=== PATIENT | female | born 1960 | race Caucasian/White ===

== ENCOUNTER 2017-10-22 05:56 | Day surgery (SDC) | payer OTHER ==
[2017-10-22] MEDS ORDERED: Propofol 10 mg/ml Inj (20 ML) ONE (07:45)
[2017-10-22] MEDS ORDERED: Midazolam 2 MG/2 ML VIAL ONE (07:46)
[2017-10-22] MEDS ORDERED: Lactated Ringer's 1,000 ML IV SCH (08:45)
--- NOTE | 2017-10-22 08:50 | PCM.SURG1 ---
Surgeon's Initial Post Op Note - Surgeon's Notes Surgeon: dr veliz Wellfield Technician: none Type of Anesthesia: General LMA Anesthesia Administered By: dr major Pre-Operative Diagnosis: 57 yr with post menapusl bleeding/end thickening Operative Findings: see the op reort Post-Operative Diagnosis: same Operation Performed: myasure/d&c, hysterscopy Specimen/Specimens Removed: ecc. emc. polyp Estimated Blood Loss: EBL {In ML}: 20 Blood Products Given: N/A Drains Used: No Drains Post-Op Condition: Good Date of Surgery/Procedure: 10/22/17 Time of Surgery/Procedure: 09:00
[2017-10-22] MEDS ORDERED: Lactated Ringer's 500 ML IV ONE (10:10)
[2017-10-22] MEDS ORDERED: Lactated Ringer's 1,000 ML IV ONE (10:17)
[2017-10-22 10:50] VITALS: RESP 18
[2017-10-22 11:08] VITALS: BP 124/69; PULSE 88; TEMP 98; O2SAT 96
--- NOTE | 2017-10-23 07:09 | OP ---
PROCEDURE DATE: 10/22/2017 PREOPERATIVE DIAGNOSIS: Endometrial polyposis. POSTOPERATIVE DIAGNOSIS: Endometrial polyposis. SURGEON: Fernando Hardy MD HIGHWAY PAINTER: None. TYPE OF ANESTHESIA: Spinal. ANESTHESIA ADMINISTERED BY: COMPLICATIONS: None. PROCEDURE PERFORMED: MyoSure, dilatation and curettage, and hysteroscopy. DESCRIPTION OF PROCEDURE: After informed consent was obtained, the patient was brought to the operating room. General anesthesia was given. Once the anesthesia was given, the patient was prepped and draped in normal sterile fashion. Examination of the uterus revealed it to be 7 weeks size. No pelvic or adnexal masses. Anterior lip of the cervix was grasped with a tenaculum. Gentle dilatation of the cervix was done with a dilator. Hysteroscope was introduced and found a polyp on the posterior wall of the uterus. Picture was taken . MyoSure was used to remove the polyp. It was removed. The hysteroscope was introduced, and there was found to be no polyp. After that, sharp curettage of all the garza of the uterus was done, and it was sent to pathology. Then the tenaculum was taken out. The patient tolerated the procedure well. Lap, sponge, and instrument counts were correct x2. Deficit was 20 mL. Fernando Hardy MD
== END 2017-10-22 11:08 | disposition home or self-care (01) ==
LOC: C.SDS 05:56
PROVIDERS: ATTEND Obstetrics & Gynecology
DX: N93.9 Abnormal uterine and vaginal bleeding, unspecified (principal); N84.0 Polyp of corpus uteri; N95.0 Postmenopausal bleeding
CPT/HCPCS: 58558; 82948; 88305; J1100; J1885; J2001; J2250; J2405; J2704; J3010; J7120

== ENCOUNTER 2018-07-20 06:49 | Day surgery (SDC) | payer OTHER ==
[2018-07-14 11:26] VITALS: BMI 33.6
[2018-07-20] MEDS ORDERED: Propofol 10 mg/ml Inj (20 ML) ONE (08:48)
[2018-07-20] MEDS ORDERED: Midazolam 2 MG/2 ML VIAL ONE (08:50)
[2018-07-20] MEDS ORDERED: Lidocaine/Epinephrine 1% 1:100000 10 ML IJ ONE (10:14)
[2018-07-20] MEDS ORDERED: Sodium Chloride 0.9% 40 ML IV ONE (10:14)
[2018-07-20] MEDS ORDERED: Bupivacaine 0.25% 20 ML INJ IJ ONE (10:14)
[2018-07-20] MEDS ORDERED: ceFAZolin 1 gm in NS 2 GM/200 ML BAG IVPB ONE (10:14)
[2018-07-20] MEDS ORDERED: Bupivacaine Liposomal Inj 20 ml INFIL ONE (10:14)
[2018-07-20] MEDS ORDERED: HYDROmorphone 0.5 mg/0.5 ml ISec IVP PRN ×2 (10:20→13:13)
[2018-07-20] MEDS ORDERED: Neostigmine 1:1000 (1 mg/ml) Inj ONE (11:54)
[2018-07-20] MEDS ORDERED: Succinylcholine Chloride 20 mg/ml Syr (5 ml) IV ONE (11:54)
[2018-07-20] MEDS ORDERED: Lactated Ringer's 1,000 ML IV ONE (13:05)
--- NOTE | 2018-07-20 13:08 | PCM.SURG1 ---
Surgeon's Initial Post Op Note - Surgeon's Notes Surgeon: Dr. Mcgovern [employer] Consultant: Halle Ingram Type of Anesthesia: General Endo, Block Regional, Local Pre-Operative Diagnosis: incisional hernia Operative Findings: agustina-umbilical incisional hernia w/ diastasis recti and reducible omental hernia contents Post-Operative Diagnosis: incisional agustina-umbilical hernia with diastasis recti Operation Performed: robotic assisted laparoscopic incisional hernia repair with mesh, plication of diastasis recti and TAP Block Specimen/Specimens Removed: omental hernia contents Estimated Blood Loss: EBL {In ML}: 10 Blood Products Given: N/A Drains Used: No Drains Post-Op Condition: Good Date of Surgery/Procedure: 07/20/18 Time of Surgery/Procedure: 13:08
[2018-07-20] MEDS ORDERED: Oxycodone/Acetaminophen 5/325 mg Tab PO PRN (13:11)
[2018-07-20 15:44] VITALS: RESP 18; O2SAT 98
[2018-07-20 16:01] VITALS: PULSE 78
[2018-07-20 17:06] VITALS: BP 124/71; TEMP 97.7
--- NOTE | 2018-07-21 04:26 | OP ---
PROCEDURE DATE: 07/20/2018 PREOPERATIVE DIAGNOSES: 1. Incisional hernia. 2. Morbid obesity. 3. Diastasis of rectus muscles. POSTOPERATIVE DIAGNOSES: 1. Incarcerated incisional hernia. 2. Diastasis of rectus muscles, 8 x 4 cm size. 3. Morbid obesity. PROCEDURES DONE: 1. Robotic incarcerated incisional hernia repair with a mesh. 2. Robotic diastasis of rectus muscles with a mesh. 3. Laparoscopic bilateral transverse abdominis plane block placement. SURGEON: Ildefonso Mcgovern MD [employer] MA[employer]: HUMBERTO Richard, PGY-4, resident ANESTHESIA: General endotracheal tube anesthesia. ESTIMATED BLOOD LOSS: Around 10 mL. DRAINS: None. PATHOLOGY: Hernial sac and content were sent to the Pathology. COMPLICATIONS: None. INTRAOPERATIVE FINDINGS: The patient had approximately 3 x 3 cm incisional hernia containing large amounts of omentum, incarcerated incisional hernia. The patient also has a diastasis of rectus muscles of approximately 8 x 4 cm size. The patient has massive morbid obesity. DESCRIPTION OF PROCEDURE: On intraoperative steps, this is a 57-year-old female who was diagnosed with incarcerated incisional hernia. The patient was consented for robotic incisional hernia repair with a mesh. Brought to the OR, placed supine on operating table. After induction of the anesthesia, the abdomen was prepped and draped in the usual sterile fashion. A left upper quadrant incision was made using the Visiport technique. Peritoneal cavity was entered. Pneumo was created. Another 3-8 mm port was placed in the left lower quadrant and the left flank. Robot was brought in. Camera arm as well as arm 1 and arm 2 were docked. First, the incarcerated omentum was reduced back into the peritoneal cavity. Incisional hernia as well as a large diastasis of rectus muscles of approximately 4 cm was diagnosed. The margin of the diastasis was marked. The post-incisional hernia defect was repaired with a #1 Prolene V-Loc suture in two layers. The diastasis of the rectus muscles was approximated by mobilizing the right and left rectus muscles from the midline, and it was sutured with a #1 Prolene V-Loc suture in a continuous fashion. After that, a 12 x 6 cm large mesh was introduced and after implantation of the mesh, a laparoscopic bilateral TAP block was given. A 30:30 mL of Exparel was injected in the transverse abdominis muscle plane area bilaterally. After proper TAP block, all the ports were taken out under vision. Pneumo was deflated. The specimen was sent off the table for pathology. All the port sites were closed in two layers; the subcu with 0 Vicryl and the skin with a 4-0 Monocryl. Dry sterile dressing was applied. The patient tolerated the procedure well. Counts of instrument and gauze were correct. There were no apparent complications. The patient was reversed from anesthesia and sent to the postanesthesia care unit in stable condition. Ildefonso Mcgovern MD
== END 2018-07-20 17:25 | disposition home or self-care (01) ==
LOC: C.SDS 06:49
PROVIDERS: ATTEND Surgery Surgical Critical Care
DX: K43.2 Incisional hernia without obstruction or gangrene (principal); K43.0 Incisional hernia with obstruction, without gangrene; E66.01 Morbid (severe) obesity due to excess calories; I10 Essential (primary) hypertension; E11.9 Type 2 diabetes mellitus without complications; E78.5 Hyperlipidemia, unspecified
CPT/HCPCS: 49655; 82948; 88302; C1781; J0690; J1170; J1885; J2001; J2250; J2405; J2704; J2710; J3010; J7120